=== PATIENT | female | born 1995 | race African-American/Black ===

== ENCOUNTER 2017-07-08 17:15 | Observation (INO) ==
[2017-07-08] MEDS ORDERED: DEXAMETHASONE 10 MG/1 ML VIAL IV STA (18:35)
[2017-07-08] MEDS ORDERED: CLINDAMYCIN INJ 600 MG in PREMIX 1 EACH IV STA (18:35)
[2017-07-08 19:01] LABS: Basophils % 0.2 % (0.0-0.8); Eosinophils % 0.2 % (0.00-10.9); Hematocrit 39.3 VOL% (35.7-47.0); Hemoglobin 13.7 GM/DL (12.0-16.0); Immature Granulocytes % 0.4 %; Immature Granulocytes Absolute 0.06 #; Lymphocytes # 1.8 10*3/uL (1.4-4.0); Lymphocytes % 11.7 % (21.3-54.2); Mean Corpuscular HGB Conc 34.9 GM/DL (32-36); Mean Corpuscular Hemoglobin 30 PG (27-34); Mean Corpuscular Volume 86.6 FL (87-102); Mean Platelet Volume 9.3 FL (9.6-12.0); Monocytes % 6.3 % (1.7-12.7); Neutrophils # 12.7 10*3/uL (1.4-7.4); Neutrophils % 81.2 % (38.7-73.9); Platelet Count 266 T/CUMM (130-400); Red Blood Count 4.54 MC/CUMM (3.8-5.5); Red Cell Distribution Width 12.7 % (9.3-17.3); White Blood Count 15.6 T/CUMM (4-12)
[2017-07-08 19:08] LABS: PT Patient Result 10.7 SECS
[2017-07-08 19:24] LABS: Calcium 9.2 MG/DL (8.5-10.1); Osmolality,Calculated 271.7 MOS/KG (273-304); Potassium 3.5 MMOL/L (3.5-5.1)
[2017-07-08] MEDS ORDERED: DEXAMETHASONE 10 MG/1 ML VIAL ONE (19:45)
[2017-07-08] MEDS ORDERED: CLINDAMYCIN 600 MG/4 ML VIAL ONE (19:45)
[2017-07-08] MEDS ORDERED: ONDANSETRON 4 MG/2 ML VIAL IV PRN (19:50)
[2017-07-08] MEDS ORDERED: ACETAMINOPHEN 325 MG TABLET PO PRN (19:50)
[2017-07-08] MEDS ORDERED: MORPHINE 2 MG/1 ML SYRINGE IV PRN (19:50)
[2017-07-08] MEDS ORDERED: ENOXAPARIN 40 MG/0.4 ML SYRINGE SUBCUT SCH (20:00)
[2017-07-08] MEDS ORDERED: SODIUM CHLORIDE 0.9% 100 ML IV ONE (20:02)
[2017-07-08] MEDS ORDERED: KETOROLAC 15 MG/1 ML VIAL IV PRN (20:17)
[2017-07-09] MEDS: CLINDAMYCIN INJ 600 MG in PREMIX 1 EACH IV SCH ×4 (00:23→20:42)
[2017-07-09 06:24] LABS: Basophils % 0.1 % (0.0-0.8); Hematocrit 37.2 VOL% (35.7-47.0); Immature Granulocytes % 0.6 %; Immature Granulocytes Absolute 0.06 #; Lymphocytes % 9.9 % (21.3-54.2); Mean Corpuscular HGB Conc 34.9 GM/DL (32-36); Mean Corpuscular Hemoglobin 30 PG (27-34); Mean Corpuscular Volume 86.5 FL (87-102); Mean Platelet Volume 9.7 FL (9.6-12.0); Monocytes # 0.2 10*3/uL (0.11-0.8); Monocytes % 1.9 % (1.7-12.7); Neutrophils # 8.9 10*3/uL (1.4-7.4); Neutrophils % 87.5 % (38.7-73.9); Platelet Count 278 T/CUMM (130-400); Red Cell Distribution Width 12.9 % (9.3-17.3); White Blood Count 10.1 T/CUMM (4-12)
[2017-07-09 06:56] LABS: Calcium 8.9 MG/DL (8.5-10.1); Osmolality,Calculated 279.3 MOS/KG (273-304); Potassium 3.9 MMOL/L (3.5-5.1)
[2017-07-09] MEDS ORDERED: CHLORHEXIDINE 0.12% ORAL RINSE 60 ML BOTTLE SWISH/SPIT ONE (12:43)
[2017-07-09] MEDS ORDERED: LIDOCAINE 1%/EPI INJ 20 ML VIAL ONE (12:43)
[2017-07-09] MEDS ORDERED: DEXAMETHASONE 10 MG/1 ML VIAL ONE (13:00)
[2017-07-09] MEDS ORDERED: ONDANSETRON 4 MG/2 ML VIAL ONE ×2 (13:00→13:48)
[2017-07-09] MEDS ORDERED: LIDOCAINE 1% 5 ML VIAL ONE (13:00)
[2017-07-09] MEDS ORDERED: GLYCOPYRROLATE 0.4 MG/2 ML VIAL ONE (13:00)
[2017-07-09] MEDS ORDERED: NEOSTIGMINE 10 MG/10 ML VIAL ONE (13:00)
[2017-07-09] MEDS ORDERED: PROPOFOL 200 MG/20 ML VIAL IV ONE (13:00)
[2017-07-09] MEDS ORDERED: KETOROLAC 30 MG/1 ML VIAL ONE (13:00)
[2017-07-09] MEDS ORDERED: ROCURONIUM 100 MG/10 ML VIAL IV ONE (13:00)
[2017-07-09] MEDS ORDERED: fentaNYL 100 MCG/2 ML VIAL ONE (13:51)
[2017-07-09] MEDS ORDERED: MIDAZOLAM 2 MG/2 ML VIAL ONE (13:51)
[2017-07-09] MEDS ORDERED: SEVOFLURANE 1 UNIT/15 MINUTE INH ONE (13:52)
[2017-07-09] MEDS ORDERED: ONDANSETRON 4 MG/2 ML VIAL IV PRN (14:14)
[2017-07-09] MEDS ORDERED: HYDROmorphone 2 MG/1 ML VIAL IV PRN (14:14)
[2017-07-09] MEDS ORDERED: LACTATED RINGERS 1,000 ML IV SCH (14:30)
[2017-07-09] MEDS: CHLORHEXIDINE 0.12% ORAL RINSE 60 ML BOTTLE SWISH/SPIT SCH (20:40)
[2017-07-10] MEDS: CLINDAMYCIN INJ 600 MG in PREMIX 1 EACH IV SCH ×2 (02:32→08:41)
[2017-07-10 07:46] VITALS: BP 125/63
[2017-07-10] MEDS: CHLORHEXIDINE 0.12% ORAL RINSE 60 ML BOTTLE SWISH/SPIT SCH (08:40)
== END 2017-07-10 10:53 | disposition home or self-care (01) ==
LOC: N.ED 17:15 → N.EDINP 17:15 → N.2E 21:04
PROVIDERS: ADMIT Internal Medicine Cardiovascular Disease; ATTEND Internal Medicine Cardiovascular Disease